=== PATIENT | male | born 1995 | race Caucasian/White ===

== ENCOUNTER 2022-09-25 16:31 | Emergency (ER) | payer MEDICAID ==
[~2022-09-25] VITALS: Ht 170.2 cm; Wt 79.4 kg
[2022-09-25 16:34] VITALS: BP 131/74
[2022-09-25] MEDS ORDERED: FLUORESCEIN OPTH STRIP 1 MG OP ONE (16:55)
[2022-09-25] MEDS ORDERED: TETRACAINE HCL/PF 0.5% OPTH 4 ML BTL OP ONE (16:55)
[2022-09-25] MEDS ORDERED: TOMOMETER 1 DEV DEV MC ONE (17:02)
[2022-09-25] MEDS ORDERED: OLOP2.5D7 OP (17:23)
[2022-09-25] MEDS ORDERED: MOXI3DRO LEFT EYE (17:23)
[2022-09-25 17:40] VITALS: BP 131/74
== END 2022-09-25 17:40 | disposition home or self-care (01) ==
LOC: MED 16:31
DX: H10.89 Other conjunctivitis (principal); B96.89 Other specified bacterial agents as the cause of diseases classified elsewhere; Z79.899 Other long term (current) drug therapy
CPT/HCPCS: 99283

== ENCOUNTER 2023-11-01 19:58 | Emergency (ER) | payer MEDICAID, OTHER ==
[~2023-11-01] VITALS: Ht 170.2 cm; Wt 74.8 kg
[~2023-11-01 19:58] MED LIST: MOXI3DRO LEFT EYE; OLOP2.5D7 OP
[2023-11-01 20:44] VITALS: BP 116/62; PULSE 54; RESP 16; TEMP 97.7; O2SAT 99
[2023-11-01] MEDS ORDERED: ALUMINUM HYD/MAG/SIMETHICONE 30 ML UDC ONE ×2 (22:34→22:35)
[2023-11-01] MEDS ORDERED: DICYCLOMINE HCL LIQUID 10 MG/5 ML UDC ONE (22:34)
[2023-11-01] MEDS: DICYCLOMINE HCL LIQUID 20 MG, ALUMINUM HYD/MAG/SIMETHICONE 30 ML, LIDOCAINE VISCOUS 2% ... PO ONE (22:38)
[2023-11-01] MEDS ORDERED: OMEP40EC23 PO (22:39)
[2023-11-01] MEDS ORDERED: IBUP-2213 PO (22:39)
[2023-11-01 22:40] VITALS: O2SAT 99
== END 2023-11-01 22:48 | disposition home or self-care (01) ==
LOC: MED 19:58
DX: K21.9 Gastro-esophageal reflux disease without esophagitis (principal); Z79.1 Long term (current) use of non-steroidal anti-inflammatories (NSAID); Z79.899 Other long term (current) drug therapy
CPT/HCPCS: 93005; 99283